=== PATIENT | male | born 2000 | race Two or more races ===

== ENCOUNTER 2018-01-06 22:06 | Emergency (ER) | payer MEDICAID ==
[~2018-01-06] VITALS: Ht 154.9 cm; Wt 86.2 kg
[~2018-01-06 22:06] MED LIST: PROAIR HFA8.5 GM INH
[2018-01-06 23:14] LABS: HEMATOCRIT 45.6 % (42.0-52.0); HEMOGLOBIN 16.1 G/DL (14.2-18.0); MEAN CORPUSCULAR VOLUME 85 FL (80-99); PLATELET COUNT 293 K/UL (150-450); RED BLOOD COUNT 5.39 M/UL (4.70-6.10); RED CELL DISTRIBUTION WIDTH 10.5 % (11.6-14.8); WHITE BLOOD COUNT 20.8 K/UL (4.8-10.8)
[2018-01-06 23:15] VITALS: BP 117/74
[2018-01-06 23:24] LABS: ANION GAP 13 mmol/L (5-15); BLOOD UREA NITROGEN 16 mg/dL (7-18); CALCIUM 9.6 MG/DL (8.5-10.1); CARBON DIOXIDE 27 MMOL/L (21-32); CHLORIDE 101 MMOL/L (98-107); CREATININE 0.9 MG/DL (0.55-1.30); POTASSIUM 2.8 MMOL/L (3.5-5.1); SODIUM 141 MMOL/L (136-145)
[2018-01-06 23:34] LABS: ALANINE AMINOTRANSFERASE 54 U/L (12-78); ALBUMIN 4.7 G/DL (3.4-5.0); ALBUMIN/GLOBULIN RATIO 1.4 (1.0-2.7); ALKALINE PHOSPHATASE 112 U/L (46-116); ASPARTATE AMINO TRANSFERASE 68 U/L (15-37); BILIRUBIN,TOTAL 1.5 MG/DL (0.2-1.0)
[2018-01-06 23:35] LABS: BILIRUBIN,DIRECT 0.5 MG/DL (0.0-0.3)
[2018-01-06 23:52] LABS: APPEARANCE,URINE CLEAR; BILIRUBIN, URINE NEGATIVE (NEGATIVE); GLUCOSE, URINE (UA) NEGATIVE (NEGATIVE); KETONES,URINE 1+ (NEGATIVE); LEUKOCYTE ESTERASE ,URINE 1+ (NEGATIVE); NITRITE,URINE NEGATIVE (NEGATIVE); PH,URINE 7 (4.5-8.0); PROTEIN,URINE 1+ (NEGATIVE); UROBILINOGEN,URINE NORMAL MG/DL (0.0-1.0)
[2018-01-06 23:58] LABS: COLOR,URINE YELLOW
--- NOTE | 2018-01-07 00:31 | Emergency Room Report ---
History of Present Illness General Chief Complaint: Abdominal Pain Source: Patient Present Illness HPI This patient c/o several hours gradual onset, moderate-severe epigastric burning pain. No similar history. No fever, no diarrhea, no vomiting. He says the bumps on the drive over were painful. He has to be in a curled position on the gurney. Denies etoh. Allergies: Uncoded Allergies: CATS (Allergy, Unknown, 01/06/18) Nursing Documentation-PMH Hx Asthma: Yes Review of Systems Gastrointestinal: Reports: see HPI, abdominal pain, nausea, vomiting Physical Exam Vital Signs Date Time Temp Pulse Resp B/P (MAP) Pulse Ox O2 Delivery O2 Flow Rate FiO2 01/06/18 22:13 98.4 65 18 115/76 98 Room Air 98.4 Sp02 EP Interpretation: reviewed, normal General Appearance: normal inspection, well appearing, no apparent distress, alert, GCS 15, non-toxic Head: normocephalic, atraumatic Eyes: bilateral eye normal inspection, bilateral eye PERRL, bilateral eye EOMI ENT: normal ENT inspection, hearing grossly normal, normal pharynx, no angioedema, normal voice, moist mucus membranes Neck: normal inspection, full range of motion, supple, no meningismus, no bony tend Respiratory: normal inspection, lungs clear, normal breath sounds, no rhonchi, no respiratory distress, no retraction, no accessory muscle use, no wheezing Cardiovascular #1: normal inspection, regular rate, rhythm, no edema Gastrointestinal: normal inspection, normal bowel sounds, soft, no mass, non- distended, other - +epigastric moderate-severe tenderness. no surgical signs Musculoskeletal: gait/station normal, normal range of motion Neurologic: normal inspection, alert, oriented x3, responsive, motor strength/ tone normal Psychiatric: normal inspection, judgement/insight normal, memory normal Suicide Risk Assessment: Suicidal Ideation: No Had intent to initiate attempt: No Pt's plan for suicide attempt: No Has means to complete attempt: No Skin: normal inspection, normal color, no rash, warm/dry Medical Decision Making Diagnostic Impression: Primary Impression: Abdominal pain Additional Impression: Substance abuse ER Course I think this is probably marijuana/cyclic vomiting syndrome. Pt. is restless, c/ w that. However WBC 20.9 made me more concerned could be appy. CT ordered. 1 am: CT unremarkable Last Vital Signs Date Time Temp Pulse Resp B/P (MAP) Pulse Ox O2 Delivery O2 Flow Rate FiO2 01/06/18 23:15 98.6 88 18 117/74 99 Room Air 98.6 Disposition: HOME, SELF-CARE Condition: Stable Referrals: NON PHYSICIAN (PCP) Nolan Guo M.D. Jan 07, 2018 00:31
--- NOTE | 2018-01-07 00:43 | Diagnostic Imaging Report ---
EXAM: CT Abdomen and Pelvis Without Intravenous Contrast CLINICAL HISTORY: PAIN TECHNIQUE: Axial computed tomography images of the abdomen and pelvis without intravenous contrast. CTDI is 8 mGy and DLP is 400 mGy-cm. One or more of the following dose reduction techniques were used: automated exposure control, adjustment of the mA and/or kV according to patient size, use of iterative reconstruction technique. COMPARISON: No relevant prior studies available. FINDINGS: Lung bases: Unremarkable. No mass. No consolidation. ABDOMEN: Liver: Unremarkable. Gallbladder and bile ducts: Unremarkable. No calcified stones. No ductal dilation. Pancreas: Unremarkable. No ductal dilation. Spleen: Unremarkable. No splenomegaly. Adrenals: Unremarkable. No mass. Kidneys and ureters: Unremarkable. No obstructing stones. No hydronephrosis. Stomach and bowel: Stool is seen in the ascending colon. No obstruction. No mucosal thickening. PELVIS: Appendix: No findings to suggest acute appendicitis. Bladder: Unremarkable. No stones. Reproductive: Unremarkable as visualized. ABDOMEN and PELVIS: Intraperitoneal space: Unremarkable. No free air. No significant fluid collection. Bones/joints: No acute fracture. No dislocation. Soft tissues: Unremarkable. Vasculature: Unremarkable. No abdominal aortic aneurysm. Lymph nodes: Unremarkable. No enlarged lymph nodes. IMPRESSION: No acute abdominal or pelvic pathology. No CT cause for pain is identified.
[2018-01-07] MEDS ORDERED: ZOFRAN4 MG ORAL (01:10)
[2018-01-07 01:30] VITALS: BP 117/74
== END 2018-01-07 01:30 | disposition home or self-care (01) ==
LOC: EMR 22:39
DX: R10.13 Epigastric pain (principal); F19.10 Other psychoactive substance abuse, uncomplicated; R11.2 Nausea with vomiting, unspecified
CPT/HCPCS: 36415; 74176; 80053; 80307; 80329; 81001; 82248; 83690; 85007; 85025; 96361; 96374; 99284; J2405

== ENCOUNTER 2018-08-25 01:40 | Emergency (ER) | payer MEDICAID ==
[~2018-08-25] VITALS: Ht 154.9 cm; Wt 40.8 kg
[~2018-08-25 01:40] MED LIST changes: +REGLAN5 MG ORAL; +ZOFRAN4 MG ORAL
--- NOTE | 2018-08-25 01:51 | NUR ---
ED Nurse Note: pt walked in c/o neck pain, sorethroat and asthma sx, no resp distress noted at this time, airway intact, noted tenderness in neck w/ difficulty swallowing due to thorat pain, resp even and unlabored on RA, LS=clear, AA&ox4, GCS=15, skin warm and dry, will cont monitor. ambulates w/ steady gait.
[2018-08-25 01:53] VITALS: BP 136/84
[2018-08-25] MEDS ORDERED: HYDROCODON-ACE1 EA15 ORAL (01:55)
[2018-08-25] MEDS ORDERED: AUGMENTIN 875-1 EAC1 ORAL (01:55)
[2018-08-25] MEDS ORDERED: IBUPROFEN600 MG ORAL (01:55)
--- NOTE | 2018-08-25 01:55 | Emergency Room Report ---
History of Present Illness General Chief Complaint: Neck Pain Source: Patient Present Illness HPI Is a 18-year-old male with history of asthma. He presents with chief complaint of neck pain and sore throat. Onset tonight. Pain is 10 out of 10. Worse with swallowing. No drooling. He had an asthma attack earlier today. No nausea vomiting or diarrhea. No cough or congestion. Allergies: Uncoded Allergies: CATS (Allergy, Unknown, 01/06/18) Patient History Past Medical History: see triage record, old chart reviewed, asthma Past Surgical History: none Pertinent Family History: none Social History: Denies: smoking Immunizations: other Reviewed Nursing Documentation: PMH: Agreed; PSxH: Agreed Nursing Documentation-PMH Hx Asthma: Yes Review of Systems Eye: Denies: eye pain, blurred vision ENT: Reports: throat pain; Denies: ear pain, nose congestion, throat swelling Respiratory: Denies: cough, shortness of breath Cardiovascular: Denies: chest pain, palpitations Gastrointestinal: Denies: abdominal pain, diarrhea, nausea, vomiting Musculoskeletal: Denies: back pain, joint pain Skin: Denies: rash Neurological: Denies: headache, numbness Endocrine: Denies: increased thirst, increased urine Hematologic/Lymphatic: Denies: easy bruising All Other Systems: negative except mentioned in HPI Physical Exam Vital Signs Date Time Temp Pulse Resp B/P (MAP) Pulse Ox O2 Delivery O2 Flow Rate FiO2 08/25/18 01:43 98.1 108 136/84 94 Room Air vitals unremarkable Sp02 EP Interpretation: reviewed, normal General Appearance: well appearing, no apparent distress, alert, thin Head: normocephalic, atraumatic Eyes: bilateral eye PERRL, bilateral eye EOMI ENT: hearing grossly normal, tonsillar swelling, pharyngeal erythema, tonsillar exudate, other - No trismus Neck: full range of motion, supple, no meningismus, tender - Adenopathy Respiratory: chest non-tender, lungs clear, normal breath sounds Cardiovascular #1: regular rate, rhythm, no murmur Gastrointestinal: normal bowel sounds, non tender, no mass, no organomegaly, no bruit, non-distended Musculoskeletal: back normal, gait/station normal, normal range of motion Psychiatric: anxious Skin: warm/dry Medical Decision Making Diagnostic Impression: Primary Impression: Pharyngitis, acute Qualified Codes: J02.9 - Acute pharyngitis, unspecified ER Course Patient with pharyngitis/tonsillitis. May be strep. No evidence of peritonsillar abscess, retropharyngeal abscess or Lee. No evidence of any meningitis. Last Vital Signs Date Time Temp Pulse Resp B/P (MAP) Pulse Ox O2 Delivery O2 Flow Rate FiO2 08/25/18 01:43 98.1 108 136/84 94 Room Air Status: improved Disposition: HOME, SELF-CARE Condition: Stable Scripts Ibuprofen* (MOTRIN*) 600 Mg Tablet 600 MG ORAL THREE TIMES A DAY, #30 TAB 0 Refills Prov: Nelson Rolle MD 08/25/18 Hydrocodone/Acetaminophen 5-325* (HYDROCODONE/ACETAMINOPHEN 5-325*) 1 Each Tablet 1 TAB ORAL Q6H PRN for For Pain, #10 TAB 0 Refills Prov: Nelson Rolle MD 08/25/18 Amoxicillin/Potassium Clav 875-125* (AUGMENTIN 875-125 TABLET*) 1 Each Tablet 1 TAB ORAL TWICE A DAY, #14 TAB Prov: Nelson Rolle MD 08/25/18 Additional Instructions: Increase fluids. Salt water gargle. Follow-up with your DrSabina in 2 to 3 days for recheck. Return if worse. Nelson Rolle MD Aug 25, 2018 01:55
[2018-08-25] MEDS ORDERED: HYDROcodone/Acetamin 5/325 tab ORAL ONE (02:00)
[2018-08-25 02:20] VITALS: BP 130/87
--- NOTE | 2018-08-25 02:21 | NUR ---
ED Nurse Note: pt cleared to be d/c per ERMD, pt d/c and aftercare instruction provided w/ prescription, pt education done via discussion and handout, pt's family member verbalized understanding and agrees with plan, pt was accompanied by brother, left w/ all belongings, wristband removed, VSS, ambulatory w/ steady gait.
== END 2018-08-25 02:20 | disposition home or self-care (01) ==
LOC: EMR 02:16
DX: J02.9 Acute pharyngitis, unspecified (principal); J45.909 Unspecified asthma, uncomplicated; Z91.048 Other nonmedicinal substance allergy status
CPT/HCPCS: 99282; J7512

== ENCOUNTER 2019-11-26 07:56 | Inpatient (IN) | payer MEDICAID ==
[~2019-11-26] VITALS: Ht 154.9 cm; Wt 46.3 kg
[~2019-11-26 07:56] MED LIST changes: +AUGMENTIN 875-1 EAC1 ORAL; +HYDROCODON-ACE1 EA15 ORAL; +IBUPROFEN600 MG ORAL
[2019-11-26 08:04] VITALS: BP 111/83
--- NOTE | 2019-11-26 08:10 | NUR ---
ED Nurse Note: patient walked into ED from home c/o nasuea, vomiting, diarrhea since 0400 today. patient reports he was studying and working, stressed out lately. patient is alert awake x4 ambulatory steady gait, breathing unlabored and even, speaking in full sentences. patient placed on a hospital gown. patient unable to provide urine sample at this time. patient denies fever or coughing.
--- NOTE | 2019-11-26 08:14 | Emergency Room Report ---
History of Present Illness General Chief Complaint: Nausea, Vomiting, and Diarrhea Source: Patient Present Illness HPI Patient is a 19-year-old male past medical history of asthma who presents the ER complaining of abdominal pain, nausea, vomiting and diarrhea for 1 day. Patient complains of chills but denies any fever. Patient denies any sick contacts or recent travel. Patient denies any bloody or bilious vomitus or bloody diarrhea. He denies any chest pain or shortness of breath. Allergies: Uncoded Allergies: CATS (Allergy, Unknown, 01/06/18) COVID-19 Screening Contact w/high risk pt: No Recent Travel to affected area: No Experienced COVID-19 symptoms?: No COVID-19 Testing performed SPECTROSCOPIST: No Patient History Reviewed Nursing Documentation: PMH: Agreed; PSxH: Agreed Nursing Documentation-PMH Past Medical History: No History, Except For Hx Cardiac Problems: No Hx Hypertension: No Hx Pacemaker: No Hx Asthma: Yes Hx COPD: No Hx Diabetes: No Hx Cancer: No Hx Gastrointestinal Problems: No Hx Dialysis: No History Of Psychiatric Problem: No Hx Neurological Problems: No Hx Cerebrovascular Accident: No Hx Seizures: No Review of Systems All Other Systems: negative except mentioned in HPI Physical Exam Vital Signs Date Time Temp Pulse Resp B/P (MAP) Pulse Ox O2 Delivery O2 Flow Rate FiO2 11/26/19 08:04 97.2 85 16 111/83 (92) 95 Room Air Sp02 EP Interpretation: reviewed, normal General Appearance: alert, GCS 15, non-toxic, mild distress Head: normocephalic, atraumatic Eyes: bilateral eye normal inspection, bilateral eye PERRL ENT: hearing grossly normal, normal pharynx, no angioedema, normal voice, dry mucus membranes Neck: full range of motion, supple/symm/no masses Respiratory: chest non-tender, lungs clear, normal breath sounds, speaking full sentences Cardiovascular #1: regular rate, rhythm, no edema Gastrointestinal: soft, no guarding, no rebound, other - Periumbilical and epigastric tenderness to palpation Rectal: deferred Genitourinary: no CVA tenderness Musculoskeletal: normal range of motion, no calf tenderness, moves extm spontaneously, gait/station normal 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 Due to a high probability of clinically significant, life threatening deterioration, the patient required my highest level of preparedness to intervene emergently and I personally spent this critical care time directly and personally managing the patient. This critical care time included obtaining a history; examining the patient; pulse oximetry; ordering and review of studies; arranging urgent treatment with development of a management plan; evaluation of patient's response to treatment ; frequent reassessment; and, discussions with other providers.This critical care time was performed to assess and manage the high probability of imminent, life-threatening deterioration that could result in multi-organ failure. It was exclusive of separately billable procedures and treating other patients and teaching time. Please see MDM section and the rest of the note for further information on patient assessment and treatment. Medical Decision Making Diagnostic Impression: Primary Impression: Sepsis Additional Impressions: Enteritis Leukocytosis ER Course Patient has been pancultured. White count of 26,000. Patient started on broad- spectrum IV antibiotics. CT demonstrates possible enteritis. C. difficile has been ordered and is pending. Patient's lactate is 3. Repeat lactate is pending. Laboratory Tests Test 11/26/19 08:18 11/26/19 08:49 11/26/19 08:50 11/26/19 09:40 White Blood Count 26.9 K/UL (4.8-10.8) *H Red Blood Count 6.69 M/UL (4.70-6.10) H Hemoglobin 20.0 G/DL (14.2-18.0) *H Hematocrit 59.9 % (42.0-52.0) H Mean Corpuscular Volume 90 FL (80-99) Mean Corpuscular Hemoglobin 29.9 PG (27.0-31.0) Mean Corpuscular Hemoglobin Concent 33.4 G/DL (32.0-36.0) Red Cell Distribution Width 11.2 % (11.6-14.8) L Platelet Count 381 K/UL (150-450) Mean Platelet Volume 7.1 FL (6.5-10.1) Neutrophils (%) (Auto) % (45.0-75.0) Lymphocytes (%) (Auto) % (20.0-45.0) Monocytes (%) (Auto) % (1.0-10.0) Eosinophils (%) (Auto) % (0.0-3.0) Basophils (%) (Auto) % (0.0-2.0) Differential Total Cells Counted 100 Neutrophils % (Manual) 77 % (45-75) H Lymphocytes % (Manual) 4 % (20-45) L Monocytes % (Manual) 6 % (1-10) Eosinophils % (Manual) 4 % (0-3) H Basophils % (Manual) 0 % (0-2) Band Neutrophils 9 % (0-8) H Platelet Estimate Adequate Platelet Morphology Normal Red Blood Cell Morphology Normal Sodium Level 141 MMOL/L (136-145) Potassium Level 3.8 MMOL/L (3.5-5.1) Chloride Level 97 MMOL/L (98-107) L Carbon Dioxide Level 31 MMOL/L (21-32) Anion Gap 14 mmol/L (5-15) Blood Urea Nitrogen 20 mg/dL (7-18) H Creatinine 1.1 MG/DL (0.55-1.30) Estimated Glomerular Filtration Rate > 60 mL/min (>60) Glucose Level 111 MG/DL (74-106) H Calcium Level 10.4 MG/DL (8.5-10.1) H Magnesium Level 1.9 MG/DL (1.8-2.4) Total Bilirubin 0.4 MG/DL (0.2-1.0) Aspartate Amino Transferase (AST) 21 U/L (15-37) Alanine Aminotransferase (ALT) 21 U/L (12-78) Alkaline Phosphatase 114 U/L (46-116) Total Protein 10.1 G/DL (6.4-8.2) H Albumin 6.3 G/DL (3.4-5.0) H Globulin 3.8 g/dL Albumin/Globulin Ratio 1.7 (1.0-2.7) Lipase 208 U/L (73-393) Venous Blood pH 7.43 Venous Blood Partial Pressure CO2 43.0 Venous Blood Partial Pressure O2 23.8 Venous Blood HCO3 27.5 Venous Blood Total Carbon Dioxide Pending Venous Blood Base Excess 2.6 Venous Blood Carboxyhemoglobin 0.5 % (0.5-1.5) Methemoglobin 0.2 Prothrombin Time 11.3 SEC (9.30-11.50) Prothrombin Time INR 1.0 (0.9-1.1) Activated Partial Thromboplast Time 25 SEC (23-33) Lactic Acid Level 2.80 mmol/L (0.4-2.0) H 2.70 mmol/L (0.66-2.22) H Urine Color Pale yellow Urine Appearance Clear Urine pH 6 (4.5-8.0) Urine Specific [place] 1.005 (1.005-1.035) Urine Protein 2+ (NEGATIVE) H Urine Glucose (UA) Negative (NEGATIVE) Urine Ketones Negative (NEGATIVE) Urine Blood Negative (NEGATIVE) Urine Nitrite Negative (NEGATIVE) Urine Bilirubin Negative (NEGATIVE) Urine Urobilinogen Normal MG/DL (0.0-1.0) Urine Leukocyte Esterase Negative (NEGATIVE) Urine RBC Pending Urine WBC Pending Urine Squamous Epithelial Cells Pending Urine Bacteria Pending Urine Opiates Screen Negative (NEGATIVE) Urine Barbiturates Screen Negative (NEGATIVE) Phencyclidine (PCP) Screen Negative (NEGATIVE) Urine Amphetamines Screen Negative (NEGATIVE) Urine Benzodiazepines Screen Negative (NEGATIVE) Urine Cocaine Screen Negative (NEGATIVE) Urine Marijuana (THC) Screen Positive (NEGATIVE) H Rhythm Strip Diag. Results Rhythm Strip Time: 10:01 EP Interpretation: yes - Shruthi Rodriguez MD Rate: 98 Rhythm: no PVC's, no ectopy, other - sinus tachycardi Chest X-Ray Diagnostic Results Chest X-Ray Diagnostic Results : Chest X-Ray Ordered: Yes # of Views/Limited/Complete: 1 View Indication: Other - sepsis EP Interpretation: Yes Interpretation: no consolidation, no effusion, no pneumothorax, no acute cardiopulmonary disease Impression: No acute disease Electronically Signed by: Shruthi Rodriguez MD Last Vital Signs Date Time Temp Pulse Resp B/P (MAP) Pulse Ox O2 Delivery O2 Flow Rate FiO2 11/26/19 08:04 97.2 85 16 111/83 (92) 95 Room Air Disposition: ADMITTED INPATIENT Condition: Critical Physician Consult: Dr. Mckeon to admit. Discussed at 1027 am. Sepsis Event Note Evaluation Current Stage of Sepsis: Sepsis Possible Source: Pulmonary Focused Exam Allergies: Uncoded Allergies: CATS (Allergy, Unknown, 01/06/18) Date Exam Occurred: Nov 26, 2019 Time Exam Occurred: 09:05 Laboratory Studies Laboratory Tests Test 11/26/19 08:18 11/26/19 08:49 11/26/19 08:50 11/26/19 09:40 White Blood Count 26.9 K/UL (4.8-10.8) *H Red Blood Count 6.69 M/UL (4.70-6.10) H Hemoglobin 20.0 G/DL (14.2-18.0) *H Hematocrit 59.9 % (42.0-52.0) H Mean Corpuscular Volume 90 FL (80-99) Mean Corpuscular Hemoglobin 29.9 PG (27.0-31.0) Mean Corpuscular Hemoglobin Concent 33.4 G/DL (32.0-36.0) Red Cell Distribution Width 11.2 % (11.6-14.8) L Platelet Count 381 K/UL (150-450) Mean Platelet Volume 7.1 FL (6.5-10.1) Neutrophils (%) (Auto) % (45.0-75.0) Lymphocytes (%) (Auto) % (20.0-45.0) Monocytes (%) (Auto) % (1.0-10.0) Eosinophils (%) (Auto) % (0.0-3.0) Basophils (%) (Auto) % (0.0-2.0) Differential Total Cells Counted 100 Neutrophils % (Manual) 77 % (45-75) H Lymphocytes % (Manual) 4 % (20-45) L Monocytes % (Manual) 6 % (1-10) Eosinophils % (Manual) 4 % (0-3) H Basophils % (Manual) 0 % (0-2) Band Neutrophils 9 % (0-8) H Platelet Estimate Adequate Platelet Morphology Normal Red Blood Cell Morphology Normal Sodium Level 141 MMOL/L (136-145) Potassium Level 3.8 MMOL/L (3.5-5.1) Chloride Level 97 MMOL/L (98-107) L Carbon Dioxide Level 31 MMOL/L (21-32) Anion Gap 14 mmol/L (5-15) Blood Urea Nitrogen 20 mg/dL (7-18) H Creatinine 1.1 MG/DL (0.55-1.30) Estimat Glomerular Filtration Rate > 60 mL/min (>60) Glucose Level 111 MG/DL (74-106) H Calcium Level 10.4 MG/DL (8.5-10.1) H Magnesium Level 1.9 MG/DL (1.8-2.4) Total Bilirubin 0.4 MG/DL (0.2-1.0) Aspartate Amino Transf (AST/SGOT) 21 U/L (15-37) Alanine Aminotransferase (ALT/SGPT) 21 U/L (12-78) Alkaline Phosphatase 114 U/L (46-116) Total Protein 10.1 G/DL (6.4-8.2) H Albumin 6.3 G/DL (3.4-5.0) H Globulin 3.8 g/dL Albumin/Globulin Ratio 1.7 (1.0-2.7) Lipase 208 U/L (73-393) Venous Blood pH 7.43 Venous Blood Partial Pressure CO2 43.0 Venous Blood Partial Pressure O2 23.8 Venous Blood HCO3 27.5 Venous Blood Total Carbon Dioxide Pending Venous Blood Base Excess 2.6 Venous Blood Carboxyhemoglobin 0.5 % (0.5-1.5) Methemoglobin 0.2 Prothrombin Time 11.3 SEC (9.30-11.50) Prothromb Time International Ratio 1.0 (0.9-1.1) Activated Partial Thromboplast Time 25 SEC (23-33) Lactic Acid Level 2.80 mmol/L (0.4-2.0) H Pending Urine Color Pending Urine Appearance Pending Urine pH Pending Urine Specific [place] Pending Urine Protein Pending Urine Glucose (UA) Pending Urine Ketones Pending Urine Blood Pending Urine Nitrite Pending Urine Bilirubin Pending Urine Urobilinogen Pending Urine Leukocyte Esterase Pending Urine Opiates Screen Pending Urine Barbiturates Screen Pending Phencyclidine (PCP) Screen Pending Urine Amphetamines Screen Pending Urine Benzodiazepines Screen Pending Urine Cocaine Screen Pending Urine Marijuana (THC) Screen Pending Vital Signs Last 24 Hour Vital Signs Date Time Temp Pulse Resp B/P (MAP) Pulse Ox O2 Delivery O2 Flow Rate FiO2 11/26/19 09:28 97.8 92 12 124/77 100 Room Air 11/26/19 08:04 97.2 85 16 111/83 (92) 95 Room Air 11/26/19 08:04 97.2 85 16 111/83 95 Room Air Respiratory Exam: Clear Cardiovascular Exam: Tachycardia Capillary Refill: Less Than 2 Seconds Peripheral Pulse: Shruthi Albert M.D. Nov 26, 2019 08:14
--- NOTE | 2019-11-26 08:20 | NUR ---
ED Nurse Note: IV line started without complication. blood sent to lab.
--- NOTE | 2019-11-26 08:33 | NUR ---
ED Nurse Note: CT called.
--- NOTE | 2019-11-26 08:36 | NUR ---
ED Nurse Note: patient taken to CT scan via gurney
[2019-11-26 08:37] LABS: HEMATOCRIT 59.9 % (42.0-52.0); MEAN CORPUSCULAR VOLUME 90 FL (80-99); PLATELET COUNT 381 K/UL (150-450); RED BLOOD COUNT 6.69 M/UL (4.70-6.10); RED CELL DISTRIBUTION WIDTH 11.2 % (11.6-14.8)
[2019-11-26 08:38] LABS: WHITE BLOOD COUNT 26.9 K/UL (4.8-10.8)
[2019-11-26 08:43] LABS: ANION GAP 14 mmol/L (5-15); BLOOD UREA NITROGEN 20 mg/dL (7-18); CALCIUM 10.4 MG/DL (8.5-10.1); CARBON DIOXIDE 31 MMOL/L (21-32); CHLORIDE 97 MMOL/L (98-107); CREATININE 1.1 MG/DL (0.55-1.30); POTASSIUM 3.8 MMOL/L (3.5-5.1); SODIUM 141 MMOL/L (136-145)
[2019-11-26] MEDS ORDERED: Cefepime HCl 2 GM in D5W 55 ML IVPB ONE (08:45)
[2019-11-26 08:48] LABS: ALANINE AMINOTRANSFERASE 21 U/L (12-78); ALBUMIN 6.3 G/DL (3.4-5.0); ALBUMIN/GLOBULIN RATIO 1.7 (1.0-2.7); ALKALINE PHOSPHATASE 114 U/L (46-116); ASPARTATE AMINO TRANSFERASE 21 U/L (15-37); BILIRUBIN,TOTAL 0.4 MG/DL (0.2-1.0)
--- NOTE | 2019-11-26 08:50 | NUR ---
ED Nurse Note: patient came back from CT scan.
--- NOTE | 2019-11-26 09:00 | NUR ---
ED Nurse Note: xray taken at bedside. lactic and blood culture sent down to lab.
--- NOTE | 2019-11-26 09:05 | NUR ---
ED Nurse Note: patient is shivering. temperature checked oral 97.8F noted. patient is receiving 2 L of NS. patient provided with warm blankets. patient is alert awake x4, patient placed on a hospital monitor. urinal provided. unable to provide urine sample at the moment.
--- NOTE | 2019-11-26 09:25 | Diagnostic Imaging Report ---
Indication: Abdominal pain, nausea, vomiting, diarrhea Technique: Spiral acquisitions obtained through the abdomen and pelvis. No oral contrast utilized, per emergency room physician request No IV contrast utilized, per referring physician request.. Multiplanar reconstructions were generated. Total dose length product 124 mGycm. CTDIvol(s) 2 mGy. Dose reduction achieved using automated exposure control Comparison: None Findings: Lack of enteric contrast limits assessment of the GI tract. The appendix is normal. No evidence of colonic diverticulosis or diverticulitis. Colon and small bowel is fluid-filled. Small bowel loops are diffusely upper limits of normal in caliber. No free or loculated intraperitoneal gas or fluid is evident. Distal esophagus, stomach, duodenum are unremarkable. Lack of IV contrast limits assessment of the solid organs. The liver, gallbladder, bile ducts, pancreas, spleen, adrenals, kidneys are unremarkable. No retroperitoneal or mesenteric mass or adenopathy. No pelvic mass or adenopathy. The included lung bases are clear. The bones are unremarkable. Impression: Limited assessment of the GI tract, due to lack of enteric contrast administration Fluid-filled small bowel and colon, may indicate diarrheal illness/enteritis. The CT scanner at [facility] is accredited by the [employer] and the scans are performed using protocols designed to limit radiation exposure to as low as reasonably achievable to attain images of sufficient resolution adequate for diagnostic evaluation.
[2019-11-26 09:28] VITALS: BP 124/77
--- NOTE | 2019-11-26 09:58 | NUR ---
ED Nurse Note: lactic acid reflex and urine sent to lab.
[2019-11-26 10:03] LABS: APPEARANCE,URINE CLEAR; BILIRUBIN, URINE NEGATIVE (NEGATIVE); COLOR,URINE PALE YELLOW; GLUCOSE, URINE (UA) NEGATIVE (NEGATIVE); KETONES,URINE NEGATIVE (NEGATIVE); LEUKOCYTE ESTERASE ,URINE NEGATIVE (NEGATIVE); NITRITE,URINE NEGATIVE (NEGATIVE); PH,URINE 6 (4.5-8.0); PROTEIN,URINE 2+ (NEGATIVE); UROBILINOGEN,URINE NORMAL MG/DL (0.0-1.0)
[2019-11-26] MEDS ORDERED: Vancomycin 1 GM in NS 275 ML IVPB ONE (10:15)
--- NOTE | 2019-11-26 10:25 | NUR ---
ED Nurse Note: updated on Doreen (mother) [phone]
[2019-11-26 11:36] VITALS: BP 111/58
--- NOTE | 2019-11-26 12:18 | NUR ---
ED Nurse Note: report given to Shannan RICE, endorsed all plan of care using SBAR to Shannan RICE. patient is resting in bed. 12 lead ekg was done, shown to Dr. Rodriguez for review.
--- NOTE | 2019-11-26 12:30 | NUR ---
ED Nurse Note: patient transferred to 2E with all of his belongings on ACLS protocol, endorsed patient to Shannan RICE
--- NOTE | 2019-11-26 12:41 | Diagnostic Imaging Report ---
Indication: Chest pain Technique: One view of the chest Comparison: none Findings: Lungs and pleural spaces are clear. Heart size is normal. Impression: No acute process
--- NOTE | 2019-11-26 13:00 | NUR ---
NURSE NOTES: Received report from KRYSTAL Tolbert. Pt arrived the unit. Pt alert, A/O x4, ambulatory with steady gait, breathing even and unlabored in RA, no s/sx of acute distress. Pt denies any pain, no N/V/D at the moment. Tele monitor attached. VS checked (BP 121/71, O2 sat in RA 97%, HR 89, RR 18, oral temp 96.1). IV sites on R AC and L AC patent and asymptomatic. Admission physical assessment performed. Will contact MD for admission orders.
--- NOTE | 2019-11-26 14:08 | History and Physical ---
History of Present Illness General Date patient seen: Nov 26, 2019 Time patient seen: 13:00 Reason for Hospitalization: Nausea, Vomiting, and Diarrhea Present Illness HPI 19-year-old gentleman with no significant past medical history presents with 1 day history of nausea vomiting and diarrhea. Patient states that he vomited 4 times which was nonbloody nonbilious. His diarrhea was also nonbloody non- bilious and happened approximately 4 times in conjunction with the vomiting. He had presented with abdominal pain that was 7 out of 10, nonradiating, generalized and described as dull that is since resolved. He states that he may h in the ED patient was found to have elevated lactate Ave eaten then chicken wings which may have been bad. States he is also undergoing a lot of stress and did not eat for the past few days. No recent travel or sick contacts. He declines any drug use. In the emergency department patient was found to have elevated lactate, severe leukocytosis and polycythemia. He was aggressively fluid resuscitated per sepsis protocol and was given cefepime and vancomycin IV. CT scan showed possible enteritis. Allergies: Uncoded Allergies: CATS (Allergy, Unknown, 01/06/18) COVID-19 Screening Contact w/high risk pt: No Recent Travel to affected area: No Experienced COVID-19 symptoms?: No Medication History Scheduled Albuterol Sulfate* (Proair Hfa*), 1 PUFF INH Q6H, (Reported) Discontinued Medications Amoxicillin/Potassium Clav 875-125* (Augmentin 875-125 Tablet*), 1 TAB ORAL TWICE A DAY Discontinued Reason: Pt stopped taking med Hydrocodone/Acetaminophen 5-325* (Hydrocodone/Acetaminophen 5-325*), 1 TAB ORAL Q6H PRN for For Pain Discontinued Reason: Pt stopped taking med Ibuprofen (Motrin), 600 MG ORAL THREE TIMES A DAY Discontinued Reason: Pt stopped taking med Patient History Healthcare decision maker Resuscitation status full code Advanced Directive on File Family History Family History: FHx: diabetes mellitus 04 GRANDMOTHER, Onset:50's - 60 Social History Social History: (1) Marijuana abuse Review of Systems Constitutional: Reports: no symptoms Eye: Reports: no symptoms ENT: Reports: no symptoms Respiratory: Reports: no symptoms Cardiovascular: Reports: no symptoms Gastrointestinal: Reports: abdominal pain, diarrhea, nausea, vomiting; Denies: melena, hematemesis Genitourinary: Reports: no symptoms Musculoskeletal: Reports: no symptoms Skin: Reports: no symptoms Psychiatric: Reports: no symptoms Neurological: Reports: no symptoms Endocrine: Reports: no symptoms Hematologic/Lymphatic: Reports: no symptoms All Other Systems: negative except mentioned in HPI Physical Exam General Appearance: no apparent distress, alert Lines, tubes and drains: peripheral HEENT: normocephalic, atraumatic, PERRL Neck: normal alignment, normal inspection Respiratory/Chest: chest wall non-tender, lungs clear, normal breath sounds, no respiratory distress, no accessory muscle use Cardiovascular/Chest: normal peripheral pulses, normal rate, regular rhythm Abdomen: soft, no mass, hyperactive bowel sounds, tender Extremities: normal range of motion, non-tender Skin Exam: warm/dry Neurologic: editor book II-XII grossly normal, no motor/sensory deficits, alert, oriented x 3 Last 24 Hour Vital Signs Date Time Temp Pulse Resp B/P (MAP) Pulse Ox O2 Delivery O2 Flow Rate FiO2 11/26/19 12:30 97.8 80 16 111/58 100 Room Air 11/26/19 11:36 97.8 80 16 111/58 100 Room Air 11/26/19 09:28 97.8 92 12 124/77 100 Room Air 11/26/19 08:04 97.2 85 16 111/83 (92) 95 Room Air 11/26/19 08:04 97.2 85 16 111/83 95 Room Air Laboratory Tests Test 11/26/19 08:18 11/26/19 08:49 11/26/19 08:50 11/26/19 09:40 White Blood Count 26.9 K/UL (4.8-10.8) *H Red Blood Count 6.69 M/UL (4.70-6.10) H Hemoglobin 20.0 G/DL (14.2-18.0) *H Hematocrit 59.9 % (42.0-52.0) H Mean Corpuscular Volume 90 FL (80-99) Mean Corpuscular Hemoglobin 29.9 PG (27.0-31.0) Mean Corpuscular Hemoglobin Concent 33.4 G/DL (32.0-36.0) Red Cell Distribution Width 11.2 % (11.6-14.8) L Platelet Count 381 K/UL (150-450) Mean Platelet Volume 7.1 FL (6.5-10.1) Neutrophils (%) (Auto) % (45.0-75.0) Lymphocytes (%) (Auto) % (20.0-45.0) Monocytes (%) (Auto) % (1.0-10.0) Eosinophils (%) (Auto) % (0.0-3.0) Basophils (%) (Auto) % (0.0-2.0) Differential Total Cells Counted 100 Neutrophils % (Manual) 77 % (45-75) H Lymphocytes % (Manual) 4 % (20-45) L Monocytes % (Manual) 6 % (1-10) Eosinophils % (Manual) 4 % (0-3) H Basophils % (Manual) 0 % (0-2) Band Neutrophils 9 % (0-8) H Platelet Estimate Adequate Platelet Morphology Normal Red Blood Cell Morphology Normal Sodium Level 141 MMOL/L (136-145) Potassium Level 3.8 MMOL/L (3.5-5.1) Chloride Level 97 MMOL/L (98-107) L Carbon Dioxide Level 31 MMOL/L (21-32) Anion Gap 14 mmol/L (5-15) Blood Urea Nitrogen 20 mg/dL (7-18) H Creatinine 1.1 MG/DL (0.55-1.30) Estimat Glomerular Filtration Rate > 60 mL/min (>60) Glucose Level 111 MG/DL (74-106) H Calcium Level 10.4 MG/DL (8.5-10.1) H Magnesium Level 1.9 MG/DL (1.8-2.4) Total Bilirubin 0.4 MG/DL (0.2-1.0) Aspartate Amino Transf (AST/SGOT) 21 U/L (15-37) Alanine Aminotransferase (ALT/SGPT) 21 U/L (12-78) Alkaline Phosphatase 114 U/L (46-116) Total Protein 10.1 G/DL (6.4-8.2) H Albumin 6.3 G/DL (3.4-5.0) H Globulin 3.8 g/dL Albumin/Globulin Ratio 1.7 (1.0-2.7) Lipase 208 U/L (73-393) Venous Blood pH 7.43 Venous Blood Partial Pressure CO2 43.0 Venous Blood Partial Pressure O2 23.8 Venous Blood HCO3 27.5 Venous Blood Total Carbon Dioxide Pending Venous Blood Base Excess 2.6 Venous Blood Carboxyhemoglobin 0.5 % (0.5-1.5) Methemoglobin 0.2 Prothrombin Time 11.3 SEC (9.30-11.50) Prothromb Time International Ratio 1.0 (0.9-1.1) Activated Partial Thromboplast Time 25 SEC (23-33) Lactic Acid Level 2.80 mmol/L (0.4-2.0) H 2.70 mmol/L (0.66-2.22) H Urine Color Pale yellow Urine Appearance Clear Urine pH 6 (4.5-8.0) Urine Specific [place] 1.005 (1.005-1.035) Urine Protein 2+ (NEGATIVE) H Urine Glucose (UA) Negative (NEGATIVE) Urine Ketones Negative (NEGATIVE) Urine Blood Negative (NEGATIVE) Urine Nitrite Negative (NEGATIVE) Urine Bilirubin Negative (NEGATIVE) Urine Urobilinogen Normal MG/DL (0.0-1.0) Urine Leukocyte Esterase Negative (NEGATIVE) Urine RBC 0 /HPF (0 - 0) Urine WBC 0 /HPF (0 - 0) Urine Squamous Epithelial Cells Occasional /LPF Urine Bacteria None /HPF (NONE) Urine Mucus Few /LPF (NONE/OCC) H Urine Opiates Screen Negative (NEGATIVE) Urine Barbiturates Screen Negative (NEGATIVE) Phencyclidine (PCP) Screen Negative (NEGATIVE) Urine Amphetamines Screen Negative (NEGATIVE) Urine Benzodiazepines Screen Negative (NEGATIVE) Urine Cocaine Screen Negative (NEGATIVE) Urine Marijuana (THC) Screen Positive (NEGATIVE) H Height (Feet): 5 Height (Inches): 1.00 Weight (Pounds): 90 Medications Current Medications Medications (Trade) Dose Ordered Sig/[place] Route PRN Reason Start Time Stop Time Status Last Admin Dose Admin Acetaminophen (Tylenol) 650 mg Q4H PRN ORAL Mild Pain (Pain Scale 1-3) 11/26/19 13:30 12/26/19 13:29 Acetaminophen (Tylenol) 650 mg Q4H PRN ORAL Temp >100.5 11/26/19 13:30 12/26/19 13:29 Dextrose (Dextrose 50%) 25 ml Q30M PRN IV Hypoglycemia 11/26/19 13:30 02/24/20 13:29 Dextrose (Dextrose 50%) 50 ml Q30M PRN IV Hypoglycemia 11/26/19 13:30 02/24/20 13:29 Ondansetron HCl (Zofran) 4 mg Q6H PRN IVP Nausea & Vomiting 11/26/19 13:30 12/26/19 13:29 Potassium Chloride/Sodium Chloride 1,000 ml @ 150 mls/hr Q6H40M IV 11/26/19 16:00 11/27/19 15:59 Assessment/Plan Problem List: (1) Sepsis ICD Codes: A41.9 - Sepsis, unspecified organism SNOMED: 43815945, 703048100 (2) Vomiting ICD Codes: R11.10 - Vomiting, unspecified SNOMED: 605208147 (3) Leukocytosis ICD Codes: D72.829 - Elevated white blood cell count, unspecified SNOMED: 234503011, 835522108 (4) Marijuana abuse ICD Codes: F12.10 - Cannabis abuse, uncomplicated SNOMED: 30083848 (5) Dehydration ICD Codes: E86.0 - Dehydration SNOMED: 12484321 (6) Enteritis ICD Codes: K52.9 - Noninfective gastroenteritis and colitis, unspecified SNOMED: 08371169 Assessment/Plan: #Sepsis secondary to enteritis #Diarrhea #Nausea vomiting #Leukocytosis -Patient started on vancomycin and cefepime -Fluid resuscitation based on surviving sepsis protocol -Trend lactates -Infectious disease consulted appreciate recommendations -CBC in the a.m. to trend leukocytes #ASPEN # Volume depletion # Polycythemia likely due to volume contraction -Replace electrolytes as needed -Fluid resuscitation -A.m. BMP -A.m. CBC for polycythemia #Marijuana use -Counseling provided SCDs for DVT PE prophylaxis and ambulation Greater than 70 minutes for coordination of care, 25 minutes [id number] with patient. Coordinated with nephrology cardiology clinical consultant and infectious disease cardiology clinical consultant. Independent review of images. Discussed patient with nursing staff and charge nurse. Gómez Mckeon M.D. Nov 26, 2019 14:08
[2019-11-26 16:00] VITALS: BP 95/50
[2019-11-26] MEDS ORDERED: NS w/KCl 20mEq 1000ml 1,000 ML IV SCH (16:00)
--- NOTE | 2019-11-26 19:25 | NUR ---
HAND-OFF: Report given to KRYSTAL Colby. Pt in stable condition. Endorsed plan of care.
--- NOTE | 2019-11-26 19:30 | NUR ---
NURSE NOTES: Report received from Shannan RICE. Patient is awake and alert x 4. Patient is noted to be on room air. Patient denies chest pain and shortness of breath at this time. Patient states that he does not have abdominal pain at this time but continues to have diarrhea. Informed Lasha RICE that he was able to leave a stool sample in the bathroom for c-diff sample. Patient placed on contact precautions. Patient has not other complaints at this time, states he will use call light if he needs anything from Lasha RICE. Bed locked, in lowest position, and will continue to follow plan of care.
[2019-11-26 20:00] VITALS: BP 100/52
--- NOTE | 2019-11-26 21:29 | Infectious Diseases Prog Note ---
Assessment/Plan Assessment/Plan Full consult dictation to follow: A) 1) sepsis, n/v, diarrhea, ? infectious diarrhea, less likely c.diff., enteritis 2) dehydration 3) allergies - cats P) 1) levofloxacin and flagyl 2) f/u on cultures and stool studies 3) monitor labs 4) ivf 5) thank you Subjective Allergies: Uncoded Allergies: CATS (Allergy, Unknown, 01/06/18) Objective Last 24 Hour Vital Signs Date Time Temp Pulse Resp B/P (MAP) Pulse Ox O2 Delivery O2 Flow Rate FiO2 11/26/19 16:14 75 11/26/19 16:00 97.9 80 18 95/50 (65) 96 11/26/19 13:43 Room Air 11/26/19 12:30 97.8 80 16 111/58 100 Room Air 11/26/19 11:36 97.8 80 16 111/58 100 Room Air 11/26/19 09:28 97.8 92 12 124/77 100 Room Air 11/26/19 08:04 97.2 85 16 111/83 (92) 95 Room Air 11/26/19 08:04 97.2 85 16 111/83 95 Room Air Height (Feet): 5 Height (Inches): 1.00 Weight (Pounds): 94 Laboratory Tests Test 11/26/19 08:18 11/26/19 08:49 11/26/19 08:50 11/26/19 09:40 White Blood Count 26.9 K/UL (4.8-10.8) *H Red Blood Count 6.69 M/UL (4.70-6.10) H Hemoglobin 20.0 G/DL (14.2-18.0) *H Hematocrit 59.9 % (42.0-52.0) H Mean Corpuscular Volume 90 FL (80-99) Mean Corpuscular Hemoglobin 29.9 PG (27.0-31.0) Mean Corpuscular Hemoglobin Concent 33.4 G/DL (32.0-36.0) Red Cell Distribution Width 11.2 % (11.6-14.8) L Platelet Count 381 K/UL (150-450) Mean Platelet Volume 7.1 FL (6.5-10.1) Neutrophils (%) (Auto) % (45.0-75.0) Lymphocytes (%) (Auto) % (20.0-45.0) Monocytes (%) (Auto) % (1.0-10.0) Eosinophils (%) (Auto) % (0.0-3.0) Basophils (%) (Auto) % (0.0-2.0) Differential Total Cells Counted 100 Neutrophils % (Manual) 77 % (45-75) H Lymphocytes % (Manual) 4 % (20-45) L Monocytes % (Manual) 6 % (1-10) Eosinophils % (Manual) 4 % (0-3) H Basophils % (Manual) 0 % (0-2) Band Neutrophils 9 % (0-8) H Platelet Estimate Adequate Platelet Morphology Normal Red Blood Cell Morphology Normal Sodium Level 141 MMOL/L (136-145) Potassium Level 3.8 MMOL/L (3.5-5.1) Chloride Level 97 MMOL/L (98-107) L Carbon Dioxide Level 31 MMOL/L (21-32) Anion Gap 14 mmol/L (5-15) Blood Urea Nitrogen 20 mg/dL (7-18) H Creatinine 1.1 MG/DL (0.55-1.30) Estimat Glomerular Filtration Rate > 60 mL/min (>60) Glucose Level 111 MG/DL (74-106) H Calcium Level 10.4 MG/DL (8.5-10.1) H Magnesium Level 1.9 MG/DL (1.8-2.4) Total Bilirubin 0.4 MG/DL (0.2-1.0) Aspartate Amino Transf (AST/SGOT) 21 U/L (15-37) Alanine Aminotransferase (ALT/SGPT) 21 U/L (12-78) Alkaline Phosphatase 114 U/L (46-116) Total Protein 10.1 G/DL (6.4-8.2) H Albumin 6.3 G/DL (3.4-5.0) H Globulin 3.8 g/dL Albumin/Globulin Ratio 1.7 (1.0-2.7) Lipase 208 U/L (73-393) Venous Blood pH 7.43 Venous Blood Partial Pressure CO2 43.0 Venous Blood Partial Pressure O2 23.8 Venous Blood HCO3 27.5 Venous Blood Total Carbon Dioxide Pending Venous Blood Base Excess 2.6 Venous Blood Carboxyhemoglobin 0.5 % (0.5-1.5) Methemoglobin 0.2 Prothrombin Time 11.3 SEC (9.30-11.50) Prothromb Time International Ratio 1.0 (0.9-1.1) Activated Partial Thromboplast Time 25 SEC (23-33) Lactic Acid Level 2.80 mmol/L (0.4-2.0) H 2.70 mmol/L (0.66-2.22) H Urine Color Pale yellow Urine Appearance Clear Urine pH 6 (4.5-8.0) Urine Specific [place] 1.005 (1.005-1.035) Urine Protein 2+ (NEGATIVE) H Urine Glucose (UA) Negative (NEGATIVE) Urine Ketones Negative (NEGATIVE) Urine Blood Negative (NEGATIVE) Urine Nitrite Negative (NEGATIVE) Urine Bilirubin Negative (NEGATIVE) Urine Urobilinogen Normal MG/DL (0.0-1.0) Urine Leukocyte Esterase Negative (NEGATIVE) Urine RBC 0 /HPF (0 - 0) Urine WBC 0 /HPF (0 - 0) Urine Squamous Epithelial Cells Occasional /LPF Urine Bacteria None /HPF (NONE) Urine Mucus Few /LPF (NONE/OCC) H Urine Opiates Screen Negative (NEGATIVE) Urine Barbiturates Screen Negative (NEGATIVE) Phencyclidine (PCP) Screen Negative (NEGATIVE) Urine Amphetamines Screen Negative (NEGATIVE) Urine Benzodiazepines Screen Negative (NEGATIVE) Urine Cocaine Screen Negative (NEGATIVE) Urine Marijuana (THC) Screen Positive (NEGATIVE) H Current Medications Medications (Trade) Dose Ordered Sig/[place] Route PRN Reason Start Time Stop Time Status Last Admin Dose Admin Acetaminophen (Tylenol) 650 mg Q4H PRN ORAL Mild Pain (Pain Scale 1-3) 11/26/19 13:30 12/26/19 13:29 Acetaminophen (Tylenol) 650 mg Q4H PRN ORAL Temp >100.5 11/26/19 13:30 12/26/19 13:29 Dextrose (Dextrose 50%) 25 ml Q30M PRN IV Hypoglycemia 11/26/19 13:30 02/24/20 13:29 Dextrose (Dextrose 50%) 50 ml Q30M PRN IV Hypoglycemia 11/26/19 13:30 02/24/20 13:29 Levofloxacin 100 ml @ 100 mls/hr Q24H IVPB 11/26/19 21:30 12/03/19 21:29 UNV Metronidazole 100 ml @ 100 mls/hr Q8HR IVPB 11/26/19 22:00 12/03/19 21:59 UNV Ondansetron HCl (Zofran) 4 mg Q6H PRN IVP Nausea & Vomiting 11/26/19 13:30 12/26/19 13:29 Clay Schwartz MD Nov 26, 2019 21:29
[2019-11-27] VITALS: BP 96/54
[2019-11-27 04:00] VITALS: BP 102/64
[2019-11-27 06:30] LABS: BASOPHILS % (AUTO) 0.6 % (0.0-2.0); EOSINOPHILS % (AUTO) 3.3 % (0.0-3.0); HEMATOCRIT 44.3 % (42.0-52.0); LYMPHOCYTES % (AUTO) 17.2 % (20.0-45.0); MEAN CORPUSCULAR VOLUME 90 FL (80-99); MONOCYTES % (AUTO) 8.3 % (1.0-10.0); NEUTROPHILS % (AUTO) 70.7 % (45.0-75.0); PLATELET COUNT 262 K/UL (150-450); RED BLOOD COUNT 4.93 M/UL (4.70-6.10); WHITE BLOOD COUNT 10.8 K/UL (4.8-10.8)
[2019-11-27 06:37] LABS: ANION GAP 13 mmol/L (5-15); BLOOD UREA NITROGEN 8 mg/dL (7-18); CALCIUM 8.4 MG/DL (8.5-10.1); CARBON DIOXIDE 25 MMOL/L (21-32); CHLORIDE 106 MMOL/L (98-107); POTASSIUM 3.5 MMOL/L (3.5-5.1); SODIUM 144 MMOL/L (136-145)
--- NOTE | 2019-11-27 07:27 | NUR ---
HAND-OFF: Report given to Lisa RN. Patient currently in stable condition.
--- NOTE | 2019-11-27 07:30 | NUR ---
NURSE NOTES: Received patient in bed awake. No SOB or acute distress. IV line intact and patent. No complaints of nausea or vomiting. Verbalized having watery stools. HOB elevated. Bed locked in lowest position. Call light within reach. Will continue plan of care.
[2019-11-27 08:00] VITALS: BP 104/60
--- NOTE | 2019-11-27 09:27 | NUR ---
CASE MANAGEMENT:REVIEW 19 YR OLD MALE WALKED INTO ER CC: CHILLS,VOMITING AND DIARRHEA SI: SEPSIS. ENTERITIS. LEUKOCYTOSIS 97.1 85 16 96/54 95% ON RA WBC+26.9 H/H+20.0/59.9 LACTIC ACID+2.80 AND 2.70 BUN+20 IS: 1L NS BOLUS IV VANCOMYCIN IV CEFEPIME IV PEPCID IV ZOFRAN CHEST XRAY STOOL FOR C-DIFF CT ABD/PELVIS BLOOD CX : TO TELEMETRY UNIT DCP: FROM HOME IS: IV LEVAQUIN Q24 IV FLAGYL Q8HRS
--- NOTE | 2019-11-27 11:04 | General Progress Note ---
Assessment/Plan Problem List: (1) Sepsis ICD Codes: A41.9 - Sepsis, unspecified organism SNOMED: 13216448, 863342641 (2) Vomiting ICD Codes: R11.10 - Vomiting, unspecified SNOMED: 174025938 (3) Leukocytosis ICD Codes: D72.829 - Elevated white blood cell count, unspecified SNOMED: 502054420, 167667176 (4) Marijuana abuse ICD Codes: F12.10 - Cannabis abuse, uncomplicated SNOMED: 86561012 (5) Dehydration ICD Codes: E86.0 - Dehydration SNOMED: 31432261 (6) Enteritis ICD Codes: K52.9 - Noninfective gastroenteritis and colitis, unspecified SNOMED: 28133560 Assessment/Plan: #Sepsis secondary to enteritis #Diarrhea improving #Nausea vomiting -improving #Leukocytosis -Patient started on vancomycin and cefepime then switch to Levaquin and Flagyl -Fluid resuscitation based on surviving sepsis protocol - completed -Trend lactates - downtrending -Infectious disease consulted appreciate recommendations -CBC in the a.m. to trend leukocytes -c. Diff negative #ASPEN - reolved # Volume depletion - resolved # Polycythemia likely due to volume contraction - resolved -Replace electrolytes as needed -Fluid resuscitation completed -A.m. BMP -A.m. CBC #Marijuana use -Counseling provided SCDs for DVT PE prophylaxis and ambulation Greater than 35 minutes for coordination of care, 15 minutes [id number] with patient. Coordinated with nephrology weight loss consultant and infectious disease weight loss consultant. Reviewed labs. Discussed patient with nursing staff and charge nurse. Subjective Constitutional: Reports: no symptoms HEENT: Reports: no symptoms Cardiovascular: Reports: no symptoms Respiratory: Reports: no symptoms Gastrointestinal/Abdominal: Reports: diarrhea, nausea, poor appetite; Denies: black stools, tarry stools, blood in stool, constipated Genitourinary: Reports: no symptoms Neurologic/Psychiatric: Reports: no symptoms Endocrine: Reports: no symptoms Hematologic/Lymphatic: Reports: no symptoms Allergies: Uncoded Allergies: CATS (Allergy, Unknown, 01/06/18) Subjective Patient feeling better but still having nausea and diarrhea. No more abdominal pain. Objective Last 24 Hour Vital Signs Date Time Temp Pulse Resp B/P (MAP) Pulse Ox O2 Delivery O2 Flow Rate FiO2 11/27/19 08:00 97.7 70 16 104/60 (75) 97 11/27/19 04:00 98.2 79 20 102/64 (77) 98 11/27/19 03:28 64 11/27/19 00:00 98.0 65 20 96/54 (68) 95 11/26/19 23:51 60 11/26/19 21:00 Room Air 11/26/19 20:00 98.6 72 18 100/52 (68) 98 11/26/19 19:45 74 11/26/19 16:14 75 11/26/19 16:00 97.9 80 18 95/50 (65) 96 11/26/19 13:43 Room Air 11/26/19 12:30 97.8 80 16 111/58 100 Room Air 11/26/19 11:36 97.8 80 16 111/58 100 Room Air Intake and Output 11/26/19 11/27/19 19:00 07:00 Intake Total 120 ml 600 ml Balance 120 ml 600 ml Intake Oral 120 ml 500 ml IV Total 100 ml # Voids 1 3 # Bowel Movements 8 Laboratory Tests 11/27/19 05:50: White Blood Count 10.8#, Red Blood Count 4.93, Hemoglobin 15.0, Hematocrit 44.3 , Mean Corpuscular Volume 90, Mean Corpuscular Hemoglobin 30.5, Mean Corpuscular Hemoglobin Concent 33.9, Red Cell Distribution Width 11.0L, Platelet Count 262, Mean Platelet Volume 6.9, Neutrophils (%) (Auto) 70.7, Lymphocytes (%) (Auto) 17.2L, Monocytes (%) (Auto) 8.3, Eosinophils (%) (Auto) 3.3H, Basophils (%) (Auto) 0.6, Sodium Level 144, Potassium Level 3.5, Chloride Level 106, Carbon Dioxide Level 25, Anion Gap 13, Blood Urea Nitrogen 8, Creatinine 1.0, Estimat Glomerular Filtration Rate > 60, Glucose Level 105, Calcium Level 8.4L Height (Feet): 5 Height (Inches): 1.00 Weight (Pounds): 102 General Appearance: WD/WN, no apparent distress, alert EENT: PERRL/EOMI Neck: non-tender, normal alignment, supple Cardiovascular: normal rate, regular rhythm, no gallop/murmur, no JVD Respiratory/Chest: chest wall non-tender, lungs clear, normal breath sounds, no respiratory distress Abdomen: non tender, no mass, hyperactive bowel sounds, tender Pelvis: normal external exam Extremities: normal range of motion, non-tender, normal inspection Edema: no edema noted Arm (L), no edema noted Arm (R), no edema noted Leg (L), no edema noted Leg (R), no edema noted Pedal (L), no edema noted Pedal (R), no edema noted Generalized Neurologic: assistant tennis coach II-XII grossly normal, no motor/sensory deficits, alert, oriented x 3 Skin: normal pigmentation, warm/dry Gómez Mckeon M.D. Nov 27, 2019 11:04
--- NOTE | 2019-11-27 11:52 | NUR ---
RD ASSESSMENT & RECOMMENDATIONS SEE CARE ACTIVITY FOR COMPLETE ASSESSMENT DAILY ESTIMATED NEEDS: Needs based on sepsis 43kg 25-35 kcals/kg 8938-3446 total kcals 1-2 g protein/kg 43-86 g total protein 25-35ml/kcal mL/kg 0083-9119 total fluid mLs NUTRITION DIAGNOSIS: Altered GI function related to enteritis as evidenced by pt adm w/ N/V/D, critically elev WBC (26.9). CURRENT DIET: CLD PO DIET RECOMMENDATIONS: Advance as tolerated to [place] diet as able ADDITIONAL RECOMMENDATIONS: 1) Obtain a standing weight 2) Monitor tolerance to diet and advance as able 3) Ensure Clear to CLD 4) Check lytes daily w/ continued diarrhea
[2019-11-27 12:00] VITALS: BP 93/52
--- NOTE | 2019-11-27 12:54 | NUR ---
*-* INSURANCE *-* ALL AVAILABLE CLINICALS AND REVIEWS HAVE BEEN FAXED TO: [employer] AUTH#[id number] P:[phone] F:[phone]
[2019-11-27 15:33] VITALS: BP 101/61
--- NOTE | 2019-11-27 17:05 | NUR ---
NURSE NOTES: pt transferred from tele, brought by RN in Wheel chair. Pt helped transfer to bed independently. Received report from Lisa RN , belongings verified at the bed side. pt stable , a/o x4, breaths regular unlabored on RA, denies any pain. skin intact , pt has a Lt AC 18 G locked , bed in low locked position , side rails upX2, call light with in reach , will continue to monitor Vital BP 112/72 HR 77 RR19 O2sat 98 at RA t P7.6
--- NOTE | 2019-11-27 17:12 | NUR ---
NURSE NOTES: Patient transferred to [facility] in stable condition, report given to Ino RICE. No new skin issues noted. Belongings accounted for. Addendum: 11/27/19 at 1713 by Lisa Tracy RN NURSE NOTES: Telebox removed.
--- NOTE | 2019-11-27 19:00 | Consultation ---
DATE OF CONSULTATION: 11/26/2019 INFECTIOUS DISEASE CONSULTATION CONSULTING PHYSICIAN: Clay Schwartz MD. ATTENDING PHYSICIAN: Ros Man MD. REFERRING PHYSICIAN: Ros Man MD. REASON FOR CONSULTATION: Possible infectious diarrhea, sepsis, enteritis. CHIEF COMPLAINT: Patient's chief complaint coming into the hospital was diarrhea, nausea, and vomiting. HISTORY OF PRESENT ILLNESS: This is a very pleasant 19-year-old male who presents to [facility] with nausea, vomiting, diarrhea. Patient had a severely elevated white count of 26.9. Infectious Disease consultation was requested for sepsis and possible infectious diarrhea and enteritis. CT scan was done. REVIEW OF SYSTEMS: CONSTITUTIONAL: Main issue is nausea, vomiting, diarrhea. No significant abdominal pain. Patient denies any fever or chills. CARDIAC: No chest pain. GENITOURINARY: No urinary symptoms. PULMONARY: No shortness of breath. SKIN: No rash. The diarrhea is for least 24 hours. PAST MEDICAL HISTORY: Otherwise unremarkable. No other significant past medical history. ALLERGIES: Include cats. SOCIAL HISTORY: Negative for smoking, alcohol, or drug abuse. FAMILY HISTORY: Noncontributory. MEDICATIONS: Upon reviewing the MAR, he is on following medications. I put him on Levaquin, Flagyl. He is on acetaminophen, Zofran, IV fluids. Outside medications noted and reconciliated. PHYSICAL EXAMINATION: VITAL SIGNS: Temperature 97.9, pulse rate 80, respiratory rate 18, blood pressure 95/50, saturation 96%. GENERAL: Alert, responsive. No distress. HEAD AND NECK: Oral exam, no thrush. Eye exam, no icterus. Normocephalic. NECK: Supple. HEART: Regular. No gallop or murmur. ABDOMEN: Soft. Positive bowel sounds. Nontender. LUNGS: Clear bilaterally. No rhonchi or rales. SKIN: No rash. MUSCULOSKELETAL: No effusion. Legs are without cellulitis. PERIPHERAL VASCULAR: No cyanosis. GENITOURINARY: No Sanders. LINE SITES: Without phlebitis. NEUROLOGIC: Intact, nonfocal. LABORATORY DATA: UA was negative. Creatinine 1.1. White count 26.9, hemoglobin 20. Cultures were pending. Stool studies were pending. IMAGING STUDIES: Chest x-ray was negative. No acute process. CT scan of the abdomen and pelvis report was noted and showed possible diarrheal illness and enteritis. ASSESSMENT AND PLAN: 1. Patient has possible sepsis, elevated white count, possible infectious diarrhea, possible enteritis, possible C. diff, which is less likely. At this time, we will continue Levaquin and Flagyl for the possible sepsis. Check cultures, laboratories. Monitor the patient clinically. Check stool studies. Continue Levaquin and Flagyl for now. 2. No other significant past medical history. 3. Allergic to cats. 4. Social history is negative. 5. Family history is noncontributory. 6. MAR was noted. 7. Case was discussed with RN. 8. Continue treatment per primary consultants. Clay Schwartz M.D. DR: NABEEL JOB#: [id number] CC:
--- NOTE | 2019-11-27 19:56 | NUR ---
HAND-OFF: Report given to Coleen Ramirez pt stable.
[2019-11-27 20:00] VITALS: BP 120/82
--- NOTE | 2019-11-27 22:30 | NUR ---
NURSES NOTE: Met pt in bed, A/OX4, denies pain currently. No outward s/s of distress noted. Breathing pattern is even and unlabored on RA. IV L AC, intact. No symptoms of infection. Pt denies N/V. 1 episode of diarrhea reported during day shift. All due meds will be given. Bed at lowest level, call light within reach. Pt will continue to be monitored.
[2019-11-28] VITALS: BP 119/80
--- NOTE | 2019-11-28 07:49 | NUR ---
HAND OFF: Report given to KRYSTAL Zafar. Pt in stable condition.
--- NOTE | 2019-11-28 07:56 | NUR ---
NURSE NOTES: Received report from Coleen RICE , rounds made, pt remains stable , a/o x4, breaths regular unlabored on RA, denies any pain, one episode of emesis at night, denies any N/V now , pt has a Lt AC 18 G locked , bed in low locked position , side rails upX2, call light with in reach , will continue to monitor.
[2019-11-28 08:00] VITALS: BP 116/71
[2019-11-28 10:25] LABS: BASOPHILS % (AUTO) 0.9 % (0.0-2.0); EOSINOPHILS % (AUTO) 2.4 % (0.0-3.0); HEMATOCRIT 48.2 % (42.0-52.0); HEMOGLOBIN 16.5 G/DL (14.2-18.0); LYMPHOCYTES % (AUTO) 21.5 % (20.0-45.0); MEAN CORPUSCULAR VOLUME 88 FL (80-99); MONOCYTES % (AUTO) 10.7 % (1.0-10.0); NEUTROPHILS % (AUTO) 64.6 % (45.0-75.0); PLATELET COUNT 294 K/UL (150-450); RED BLOOD COUNT 5.49 M/UL (4.70-6.10); RED CELL DISTRIBUTION WIDTH 10.8 % (11.6-14.8); WHITE BLOOD COUNT 9.1 K/UL (4.8-10.8)
[2019-11-28 10:27] LABS: ANION GAP 12 mmol/L (5-15); BLOOD UREA NITROGEN 10 mg/dL (7-18); CALCIUM 9.5 MG/DL (8.5-10.1); CARBON DIOXIDE 26 MMOL/L (21-32); CHLORIDE 106 MMOL/L (98-107); POTASSIUM 3.5 MMOL/L (3.5-5.1); SODIUM 144 MMOL/L (136-145)
[2019-11-28] MEDS ORDERED: PROBIOTIC1 EAC2 PO (10:56)
[2019-11-28] MEDS ORDERED: CIPROFLOXACIN500 M2 ORAL (10:56)
[2019-11-28] MEDS ORDERED: LEVOFLOXACIN500 MG ORAL (10:56)
--- NOTE | 2019-11-28 10:59 | Discharge Instructions ---
Discharge Instructions Discharge Instructions Diet: celiac (gluten free), lactose free, low residue/fiber Activity: light activity For Congestive Heart Failure Reminder Report to your physician any weight gain of 5 pounds or more in one week. Gómez Mckeon M.D. Nov 28, 2019 10:59
[2019-11-28 12:00] VITALS: BP 114/67
--- NOTE | 2019-11-28 14:29 | Discharge Summary ---
Discharge Summary Hospital Course Date of Admission Nov 26, 2019 at 10:05 Date of Discharge 11/28/2019 Admitting Diagnosis SEPSIS HPI 19-year-old gentleman with no significant past medical history presents with 1 day history of nausea vomiting and diarrhea. Patient states that he vomited 4 times which was nonbloody nonbilious. His diarrhea was also nonbloody non- bilious and happened approximately 4 times in conjunction with the vomiting. He had presented with abdominal pain that was 7 out of 10, nonradiating, generalized and described as dull that is since resolved. He states that he may h in the ED patient was found to have elevated lactate Ave eaten then chicken wings which may have been bad. States he is also undergoing a lot of stress and did not eat for the past few days. No recent travel or sick contacts. He declines any drug use. In the emergency department patient was found to have elevated lactate, severe leukocytosis and polycythemia. He was aggressively fluid resuscitated per sepsis protocol and was given cefepime and vancomycin IV. CT scan showed possible enteritis. Consultations ID Dr. Collado Hospital Course #Sepsis secondary to enteritis - improved #Diarrhea - resolved #Nausea vomiting - resolved #Leukocytosis - resolved -Patient started on vancomycin and cefepime then switch to Levaquin and Flagyl -Fluid resuscitation based on surviving sepsis protocol - completed -Trend lactates - downtrended -Infectious disease consulted -c. Diff negative #ASPEN - resolved # Volume depletion - resolved # Polycythemia likely due to volume contraction - resolved -Replaced electrolytes -Fluid resuscitation completed #Marijuana use -Counseling provided SCDs for DVT PE prophylaxis and ambulation Greater than 40 minutes for coordination of care, 10 minutes [id number] with patient. Coordinated with nephrology rehabilitation consultant and infectious disease rehabilitation consultant. Reviewed labs. Discussed patient with nursing staff and charge nurse. Coordinated discharge care and set up with PCP. Discharge Medications New Medications: Ciprofloxacin Hcl* (Ciprofloxacin Hcl*) 500 Mg Tablet 500 MG ORAL Q12H for 3 Days, #6 TAB 0 Refills Lactobacillus Acidophilus (Probiotic) 1 Each Capsule 1 EACH PO BID for 7 Days, #14 CAP Levofloxacin (Levofloxacin*) 500 Mg Tablet 500 MG ORAL DAILY for 3 Days, #3 TAB Continued Medications: Albuterol Sulfate* (Proair Hfa*) 8.5 Gm Hfa.aer.ad 1 PUFF INH Q6H, GM 0 Refills Discharge Condition Upon Discharge: improving Discharge Vital Signs Last Vital Signs Date Time Temp Pulse Resp B/P (MAP) Pulse Ox O2 Delivery O2 Flow Rate FiO2 11/28/19 12:00 99.0 68 21 114/67 (83) 98 11/28/19 09:00 Room Air Discharge Disposition Patient was discharged to home with follow up with ID and PCP Discharge Diagnoses: (1) Enteritis (2) Dehydration (3) Marijuana abuse (4) Sepsis Discharge Instructions Discharge Instructions Activity: light activity Gómez Mckeon M.D. Nov 28, 2019 14:29
[2019-11-28 16:00] VITALS: BP 110/77
--- NOTE | 2019-11-28 16:20 | NUR ---
*-* INSURANCE *-* ALL AVAILABLE CLINICALS AND REVIEWS HAVE BEEN FAXED TO: [employer] AUTH#[id number] P:[phone] F:[phone]
--- NOTE | 2019-11-28 19:45 | NUR ---
NURSE NOTES: Pt is ready to discharge. Has all his belongings. IV and ID band got removed. Escort to the lobby via WC. Alert and awake and excited to go home. Left the facility with his family members via private car.
== END 2019-11-28 19:43 | disposition home or self-care (01) | DRG 720 ==
LOC: EMR 08:30 → 2E 10:05 → EDBEDREQSVC 10:49 → EDBEDREQ 10:49 → 2E 17:28 → 3E 11-27 17:46
DX: A41.9 Sepsis, unspecified organism (principal); N17.9 Acute kidney failure, unspecified; J45.909 Unspecified asthma, uncomplicated; F12.10 Cannabis abuse, uncomplicated; E86.0 Dehydration; K52.9 Noninfective gastroenteritis and colitis, unspecified; D75.1 Secondary polycythemia
CPT/HCPCS: 36415; 71045; 74176; 80048; 80053; 80307; 81003; 83605; 83690; 83735; 85007; 85025; 85610; 85730; 86703; 87040; 87045; 87324; 93005; 96361; 96365; 96367; 96375; 99291; J2405; J7030